=== PATIENT | female | born 1950 | race Caucasian/White ===

== ENCOUNTER 2025-06-03 16:46 | Emergency (ER) | payer OTHER ==
[2025-06-03 16:53] VITALS: TEMP 97.4; BMI 26.4
[2025-06-03 17:25] LABS: ABSOLUTE IMMATURE GRANULOCYTES 0.02 x10^3/uL (0.0-0.031); BASOPHILS # 0.07 x10^3/uL (0.01-0.08); EOSINOPHIL % 2.5 % (0.7-5.8); EOSINOPHILS # 0.20 x10^3/uL (0.04-0.36); MCHC 31.8 g/dl (32.2-35.5); MEAN CELL VOLUME 95.2 fl (79.4-94.8); MEAN PLT VOLUME 11.2 fl (9.4-12.3); MONOCYTE # 0.69 x10^3/uL (0.24-0.86); MONOCYTE % 8.6 % (4.7-12.5); RDW 14.3 % (12.4-16.6)
[2025-06-03 17:34] LABS: INR 1.02 (0.83-1.09); PROTHROMBIN TIME (PATIENT) 11.1 SEC (9.7-13.0)
[2025-06-03 17:37] LABS: ACTIVATED PTT 26.0 SECONDS (25.2-36.5)
[2025-06-03 17:47] LABS: CO2 19 mmol/L (21-32); GLUCOSE,RANDOM 128 mg/dL (74-106)
[2025-06-03 17:50] LABS: CREATININE 1.3 mg/dL (0.55-1.3); SGOT/AST 10 U/L (15-37); SGPT/ALT 19 U/L (13-61)
[2025-06-03 17:51] LABS: LDL CHOLESTEROL (ONLY SJRH) 72 mg/dL (5-100); TOT PROT 6.0 g/dl (6.4-8.2)
[2025-06-03 17:52] LABS: ALK PHOS 72 U/L (45-117)
[2025-06-03] MEDS: ASPIRIN 81 MG CHEWABLE TABLETS PO ONE (17:55)
[2025-06-03] MEDS: ATORVASTATIN CA 40 MG TABLET (FP) PO ONE (17:55)
[2025-06-03] MEDS ORDERED: MAGNESIUM SULFATE IN WATER 2 GM/50 ML IVPB IVPB ONE (18:18)
[2025-06-03] MEDS: MAGNESIUM SULFATE IN WATER 2 GM/50 ML IVPB IVPB ONE (18:23)
[2025-06-03 18:39] LABS: URINE APPEARANCE CLEAR; URINE BILIRUBIN NEGATIVE (NEGATIVE); URINE COLOR YELLOW; URINE GLUCOSE (UA) NEGATIVE (NEGATIVE); URINE KETONE NEGATIVE (NEGATIVE)
[2025-06-03 18:40] LABS: URINE LEUK ESTERASE NEGATIVE (NEGATIVE); URINE NITRITE NEGATIVE (NEGATIVE); URINE PROTEIN 30 (NEGATIVE); URINE UROBILINOGEN 0.2 mg/dL (0.2-1.0)
[2025-06-03 20:21] VITALS: BP 109/60; PULSE 64
[2025-06-03 23:40] VITALS: RESP 20
== END 2025-06-03 23:15 | disposition short-term general hospital (02) ==
LOC: JER 16:46
DX: I67.1 Cerebral aneurysm, nonruptured (principal); I65.29 Occlusion and stenosis of unspecified carotid artery; R47.81 Slurred speech; R29.810 Facial weakness
CPT/HCPCS: 36415; 70450-TC; 70496-TC; 70498-TC; 71045-TC-FY; 80053; 80061; 81003; 82550; 82962; 83036; 83605; 83735; 84100; 84484; 85025; 85610; 85730; 86850; 86900; 86901; 87086; 87637-QW; 93005; 93010; 99285-25